=== PATIENT | female | born 1965 | race Caucasian/White ===

== ENCOUNTER 2023-07-30 11:52 | Emergency (ER) | payer OTHER, BC | END 2023-07-30 13:17 | disposition home or self-care (01) | LOC: JD.ED 11:52 | DX: S63.094A Other dislocation of right wrist and hand, initial encounter (principal); Z91.041 Radiographic dye allergy status; Z79.899 Other long term (current) drug therapy; Z88.0 Allergy status to penicillin; Z90.49 Acquired absence of other specified parts of digestive tract; W19.XXXA Unspecified fall, initial encounter | CPT/HCPCS: 70450; 70450-26; 73110-26-RT; 73110-RT; 99283; 99284 ==